=== PATIENT | female | born 1995 | race Caucasian/White ===

== ENCOUNTER → 2020-10-05 | Outpatient (CLI) | payer BC ==
--- NOTE | 2020-10-05 16:07 | US ---
EXAMINATION TYPE: US abdomen complete DATE OF EXAM: 10/05/2020 COMPARISON: NONE CLINICAL HISTORY: 25-year-old female R10.9 Abdominal Pain. Nausea, vomiting, abdominal discomfort TECHNIQUE: Multiple sonographic images of the abdomen are obtained. FINDINGS: EXAM MEASUREMENTS: Liver Length: 14.1 cm Gallbladder Wall: 0.2 cm CBD: 0.4 cm Spleen: 11.6 cm Right Kidney: 10.1 x 3.8 x 4.5 cm Left Kidney: 10.6 x 4.1 x 3.9 cm Pancreas: wnl Liver: wnl Gallbladder: wnl Evidence for sonographic [place]'s sign: no CBD: wnl Spleen: wnl Right Kidney: wnl Left Kidney: wnl Upper IVC: wnl Abd Aorta: wnl IMPRESSION: Unremarkable sonographic examination of the abdomen.
--- NOTE | 2020-10-05 16:11 | US ---
EXAMINATION TYPE: Ultrasound OB <= 14 weeks transvaginal DATE OF EXAM: 10/05/2020 3:37 PM COMPARISON: NONE CLINICAL HISTORY: 25-year-old female R10.9 Abdominal Pain. Pelvic discomfort EXAM PERFORMED: Transvaginal (TV) and Transabdominal (TA) FINDINGS: EXAM MEASUREMENTS: GESTATIONAL AGE / DATING Physician Established: Not yet established Dates by LMP: LMP unknown Dates by First Scan: No previous this is first scan Dates by Current Scan for: (7 weeks/3 days) EDC: 05/21/21 MATERNAL ANATOMY Uterus: 9.0 x 4.3 x 4.9cm Right Ovary: 3.6 x 1.8 x 2.2cm Left Ovary: 2.1 x 2.0 x 1.8cm Post CDS / Adnexa: appears wnl Presence of free fluid: no Presence of corpus luteal cyst: yes, hypoechoic area right ovary = 2.3 x 1.8 x 1.4cm GESTATION / SURVEY CRL: 1.2cm (7 weeks/3 days) Yolk Sac (normal less than 6mm): 0.3cm Gestational sac: Located along the left half of the uterine fundus, refer to page 23 of 48. Heart Rate: 160 bpm Rhythm: Normal IUP: Viable IUP Date of LMP: unknown Beta HcG (if available): Not available at this time IMPRESSION: 1. Single live intrauterine with gestational age of 7 weeks 3 days by CRL. 2. The gestational sac has implanted at the left uterine fundus. Likely of no clinical significance i f the proceeds as normal. Otherwise, findings could reflect an arcuate or partially septate uterus. 3. A 2.3 cm corpus luteum within the right ovary. 4. Complete survey recommended at 18-20 weeks.
== END | disposition home or self-care (01) ==
LOC: RADUSWWP 14:37
PROVIDERS: ATTEND Internal Medicine
DX: O26.891 Other specified pregnancy related conditions, first trimester (principal); Z3A.01 Less than 8 weeks gestation of pregnancy
CPT/HCPCS: 76700; 76801; 76817